=== PATIENT | female | born 1945 | race Caucasian/White ===

== ENCOUNTER 2020-03-10 13:01 | Inpatient (IN) ==
--- NOTE | 2020-03-10 13:12 | ERNOTE ---
Neuro HPI ER Record Presenting Symptoms: other - Decreased level of consciousness Time Seen by Provider: 03/10/20 13:11 Source: EMS notes reviewed, past records Exam Limitations: clinical condition Immunizations: IMMUNIZATION HX Immunizations Up to Date Yes History of Influenza Vaccine Yes Allergies/Adverse Reactions: Allergies Allergy/AdvReac Type Severity Reaction Status Date / Time latex Allergy Intermediate Other Verified 03/10/20 13:10 Home Medications: HOME MEDICATIONS Aspirin 325 mg PO DAILY 02/21/20 [Last Taken Unknown] Atorvastatin Calcium 10 mg PO HS 02/21/20 [Last Taken Unknown] Furosemide [Lasix] 40 mg PO DAILY 02/21/20 [Last Taken Unknown] Gabapentin 600 mg PO TID 02/21/20 [Last Taken Unknown] Amlodipine Besylate 10 mg PO DAILY 03/07/20 [Last Taken Unknown] Carvedilol [Coreg] 25 mg PO BID 03/07/20 [Last Taken Unknown] Clonidine HCl [Catapres] 0.2 mg PO Q8H 03/07/20 [Last Taken Unknown] Lisinopril [Zestril] 40 mg PO DAILY 03/07/20 [Last Taken Unknown] - History of Present Illness Narrative: Patient is a 74-year-old white female with past medical history significant for recent brain surgery with a recent intracranial bleed has been at the [facility] for skilled rehab and was found to have decreased level of c onsciousness earlier today, with difficulties arousing. Because of her recent surgical history she was sent to the ER for evaluation. Her states that she was recently seen in [facility] and released after 8 hours due to stability of CT findings, but his biggest concern was the fact that she had an elevated troponin I but no full cardiac work-up was done. She has not rivera d any outpatient cardiac work-up either. Her doctor is Dr. Lipscomb who practices in [facility]. Patient denies any chest pain or shortness of breath or unilateral weakness. She is able to state her name, though speech is slow and purposeful. Been no reported fevers or chills, cough, urinary frequency or dysuria, abdominal pain or diarrhea. Onset: better, >3 hours - Character of Deficits New weakness: Present: general (diffuse) Baseline Cognition: Present: alert, oriented x 4 Baseline Gait: Present: walks only w/ assistance Associated Symptoms: Reports: altered mental status, confused, decreased responsiveness, unresponsive. Denies: fever/chills, sweating, chest pain, neck/back pain, headache, fainting, seizure, disoriented, agitated, trouble concentrating, trouble thinking Prior Treament: Reports: recently seen, treated by physician, recently hospitalized Review of Systems - Review of Systems Constitutional: Present: fatigue, malaise. Absent: fever, chills, weakness EYE: Absent: blurred vision, double vision ENT: Absent: nose congestion, sore throat Respiratory: Absent: shortness of breath, cough Cardiology: Absent: chest pain, palpitations, syncope Gastrointestinal/Abdominal: Absent: nausea, vomiting, diarrhea, constipation, abdominal pain Genitourinary: Absent: frequency, dysuria Musculoskeletal: Absent: back pain, muscle pain, muscle stiffness Skin: Absent: rash, dryness Neurological: Absent: anxiety, depressed, emotional problems, headache, dizziness/light-headedness, numbness, tingling, tremors Endocrine: Absent: excessive sweating, flushing, intolerance to heat, intolerance to cold Hematologic/Lymphatic: Absent: easy bruising, easy bleeding Psych: Absent: anxiety, depressed Medical History (Last Reviewed 03/10/20 @ 23:24 by Zaira Garcia RN) Atrial fibrillation Diabetes GERD (gastroesophageal reflux disease) Hemorrhagic stroke Incontinence of urine Meningioma Stroke Surgical History: Surgical History (Last Reviewed 03/10/20 @ 23:24 by Zaira Garcia RN) History of craniotomy Hx of cholecystectomy Hx of hysterectomy Family History: Family History (Last Reviewed 03/10/20 @ 23:25 by Zaira Garcia RN) Mother Hypertension Social History: (Last Reviewed 03/11/20 @ 22:10 by Joe Ojeda MD) Social History: Marital status: lives independently: Yes lives independently comment: lives at home with her . household members: spouse caregiver/support person: Yes caregiver/support person comment: spouse parent marital status: Tobacco: Smoking Status: Former smoker Alcohol: alcohol intake: former Substance Use: substance use type: does not use Physical Exam - Physical Exam General Appearance: Present: wd/wn, alert, no apparent distress, other - Responses slow/delayed but appropriate. Patient can state her name Head Exam: Present: other - Patient has a right parietal surgical scalp wound that has no erythema or discharge. Eye Exam: Normal inspection: bilateral, PERRL: bilateral, Abnormal EOM: bilateral - Patient will not do left lateral gaze Ears, Nose, Throat: Present: normal except -, dry mucous membranes Neck: Present: normal inspection, nontender, supple Respiratory: Present: no respiratory distress, normal breath sounds, no accessory muscle use, chest nontender, lungs clear Cardiovascular/Chest: Present: regular rate, rhythm, no murmur, normal peripheral pulses Gastrointestinal/Abdominal: Present: normal bowel sounds, nontender, nondistended, soft, no organomegaly Extremity Exam: Present: normal inspection, non-tender, normal range of motion, no edema Neurological Exam: Present: alert, normal mood/affect, no motor/sensory deficits - Patient does have slight decreased honey producer strength on the right versus the left. honey producer strength is 4 on the left and 4- on right. Skin Exam: Present: normal color, warm/dry [place] Coma Scale - Assess Eye Opening: Spontaneous Motor: Obeys Commands Verbal: Oriented - Total Coma Scale Total: 15 Progress - Results and Orders Patient's Lab Results:: I have reviewed the patient's lab results. Results and Orders: Laboratory Tests 03/10/20 13:10 WBC 14.5 H RBC 4.63 Hgb 13.3 Hct 40.1 MCV 86.6 MCH 28.7 MCHC 33.2 RDW 13.1 Plt Count 228 MPV 9.9 Immature Gran % (Auto) 0.60 H Immature Gran # (Auto) 0.08 H Neutrophils % 86.0 H Lymphocytes % 7.8 L Monocytes % 4.7 Eosinophils % 0.6 Basophils % 0.3 Nucleated RBC % 0.0 Neutrophils # 12.5 H Lymphocytes # 1.14 L Monocytes # 0.7 Eosinophils # 0.1 Absolute Basophils 0.1 Laboratory Tests 03/10/20 13:10 Sodium 139 Plasma Sodium 139 Potassium 2.9 L Chloride 98 Carbon Dioxide 29.4 Anion Gap 14.5 H BUN 23 Creatinine 1.40 D Est GFR (Non-Af Amer) 39 L D BUN/Creatinine Ratio 16.4 Random Glucose 128 H Calcium 9.5 Calcium Adj for Albumin 9.5 Total Bilirubin 1.3 H AST 21 ALT 27 Alkaline Phosphatase 95 Troponin I 0.182 H* C-Reactive Prot, Quant 0.8 Total Protein 7.1 Albumin 3.6 Laboratory Tests 03/10/20 14:05 Urine Color Yellow Urine Appearance Clear Urine pH 6.0 Ur Specific [place] 1.015 Urine Protein Negative Urine Glucose (UA) Negative Urine Ketones Negative Urine Blood Negative Urine Nitrate Negative Urine Bilirubin Negative Urine Urobilinogen Normal Ur Leukocyte Esterase Negative Urine RBC None seen Urine WBC Trace H Ur Epithelial Cells None seen Urine Bacteria 1+ H Urine Culture Comments No culture indicated Laboratory Tests 03/10/20 16:05 Troponin I 0.171 H* - Vital Signs Patient's Vital Signs:: I have reviewed the patient's vital signs. Vital Signs: Vital Signs 03/10/20 13:08 Temperature 36.9 C Pulse Rate 62 Respiratory Rate 18 Blood Pressure 106/61 O2 Sat by Pulse Oximetry 95 - Progress/Reassessment Chief Complaint: Altered Mental Status Progress:: Improved - Transfer of Care Expected Disposition: Admit Additional Notes: Patient discussed with Dr. Lemus. She is agreeable for admission. Explained her that that she did have an elevated troponin I and was hypokalemic with just 20meq PO KCL given so far. Dr. Lemus asked for start of KCL rider 10meq in ER prior to transfer to the floor and she will take things from there. Plan - Plan Plan: Given patient's decreased level of consciousness will check cardiac enzymes, EKG, labs and also repeat head CT for concern for possible rebleed. Labs for the most part been normal though she does have a slight elevation of her white count to 14,000 and it was 11,000 a few days ago. She is afebrile. Her troponin came back 0.182. Because of her recent surgeries and intracranial bleed she is not a candidate for heparin drip or TPA. Her blood pressures are currently 120/73. I discussed with her what we found so far and the limitations from a treatment standpoint. He is okay with repeating a troponin in 3 hours after the initial one was done. Her did state that yesterday her blood pressures went into the 180's/110's and patient was given medications with then dropped her systolic blood pressures into the 60s. Her states he would prefer if she does need to be transferred from a cardiology standpoint that she would not go to [facility] but would be evaluated possibly at [facility]. Departure Clinical Impression: Elevated troponin I level, Hypokalemia Altered mental status Qualifiers: Altered mental status type: somnolence Qualified Code(s): R40.0 - Somnolence - Departure Disposition: Still a patient Condition: Stable
[2020-03-10 13:27] LABS: Hematocrit 40.1 % (37.0-47.0); Hemoglobin 13.3 gm/dL (12.5-16.0); Mean Cell Volume 86.6 fl (78-100); Mean Corpuscular Hemoglobin 28.7 pg (27-31); Mean Corpuscular Hgb Conc 33.2 g/dl (32-36); Mean Platelet Volume 9.9 fl (8-12.5); Neutrophil # 12.5 K/mm3 (1.3-6.0); Platelet Count 228 K/mm3 (150-450); Red Blood Count 4.63 M/mm3 (4.2-5.4); Red Cell Distribution Width 13.1 % (11.5-14.0); White Blood Count 14.5 K/mm3 (4.0-10.5)
[2020-03-10 13:52] LABS: Albumin * 3.6 gm/dl (3.4-5.0); Anion Gap 14.5 mmol/L (6.8-13.8); BUN/Creatinine Ratio 16.4 (9.0-21.6); Bilirubin, Total 1.3 mg/dL (0.0-1.1); CRP 0.8 mg/dL (0.0-0.9); Ca. Corrected For Albumin 9.5 mg/dL (8.4-10.2); Calcium * 9.5 mg/dL (7.9-10.9); Carbon Dioxide 29.4 mmol/L (24-32.6); Potassium 2.9 mmol/L (3.4-4.6); Total Protein 7.1 gm/dL (6.2-8.2)
[2020-03-10 13:58] LABS: Troponin I 0.182 ng/mL (0.00-0.10)
[2020-03-10 14:15] LABS: Urine Bilirubin Negative (NEGATIVE); Urine Blood Negative /ul (NEGATIVE); Urine Ketone Negative (NEGATIVE); Urine Nitrite Negative (NEGATIVE); Urine Protein Negative (NEGATIVE); Urine Specific Gravity 1.015 SP.GR. (1.005-1.010); Urine Urobilinogen Normal (NORMAL)
[2020-03-10 14:41] LABS: Urine Appearance Clear (CLEAR); Urine Bacteria 1+; Urine Color Yellow; Urine RBC None Seen /hpf (0-5); Urine WBC TRACE /hpf (0-5)
[2020-03-10] MEDS ORDERED: POTASSIUM CHLORIDE 20 MEQ TABLET.SA PO ONE (16:51)
[2020-03-10] MEDS ORDERED: POTASSIUM CHLORIDE IN WATER 100 ML IV ONE ×2 (18:15→19:55)
[2020-03-10] MEDS ORDERED: ACETAMINOPHEN 500 MG TABLET PO PRN (19:59)
--- NOTE | 2020-03-10 20:36 | HP ---
Chief Complaint - Chief Complaint Date of Service: 03/10/20 Time of Service: 20:18 Chief Complaint: I have been confused since this morning History of Present Illness: 74-year-old female with past medical history of type II diabetes, hypertension, obesity, hemorrhagic CVA, meningioma, GERD was brought to the ER by EMS from the [facility] for evaluation of altered mental status. Patient recently suffered a hemorrhagic CVA and was treated by a neurovascular surgeon at the [facility] and was discharged to the [facility], several days after that she had to be brought back to the [facility] due to recurrence of altered mental status. The patient was evaluated at the [facility] and it was determined that her condition was unchanged so no changes were made to her treatment. However this morning the patient was observed to be more hypoactive and had an altered mental status compared to yesterday. She appeared confused and minimally responsive. Once in the ER her mentation fluctuated with periods of confusion about where she was or details of current events. Currently the patient is resting comfortably, she is responsive to questioning and is following command. Although she appears mildly somnolent she is oriented in person and time but was confused about where she lives, whether or not this is the patient's baseline is difficult to determine at this time because she is unaccompanied. Head CT scan done in the ER this afternoon actually showed a decrease in her brain bleed and improvement compared to the previous head CT. Neurologically the patient displays left-sided weakness in her upper extremities and sensation is intact. She was found to have elevated troponin than the ER however this is not new for the patient because there is a previous troponin that was even higher several days ago. She denies any chest pain or shortness of breath or any other cardiac symptoms. Medical History (Last Reviewed 03/10/20 @ 13:10 by Mahsa Huitron RN) Atrial fibrillation Diabetes GERD (gastroesophageal reflux disease) Hemorrhagic stroke Incontinence of urine Meningioma Stroke Surgical History: Surgical History (Last Reviewed 03/10/20 @ 13:10 by Mahsa Huitron RN) History of craniotomy Hx of cholecystectomy Hx of hysterectomy Family History: Family History (Last Reviewed 03/10/20 @ 13:10 by Mahsa Huitron RN) Mother Hypertension Social History: (Last Reviewed 03/10/20 @ 13:10 by Mahsa Huitron RN) Social History: Marital status: lives independently: Yes lives independently comment: lives at home with her . household members: spouse caregiver/support person: Yes caregiver/support person comment: spouse parent marital status: Tobacco: Smoking Status: Former smoker Alcohol: alcohol intake: former Substance Use: substance use type: does not use Peds Patient Hx - Developmental: No Pertinent Hx Peds Patient Hx - Medical: No Pertinent Hx Peds Patient Hx - Cardiac/Respiratory: No Pertinent Hx Peds Patient Hx - Surgical: No Surgical History Patient History - Cancer: No Hx of Cancer Review Of Systems (GEN) - Review of Systems Generalized/Overall Review: Present: Weakness EENTM: Present: No Symptoms Reported Respiratory: Present: No Symptoms Reported Cardiac: Present: No Symptoms Reported Abdominal: Present: No Symptoms Reported Genitourinary: Present: No Symptoms Reported Musculoskeletal: Present: No Symptoms Reported Neurological: Present: Pre-existing Deficit, Other - Altered mental status, confusion Skin: Present: No Symptoms Reported Endocrine: Present: No Symptoms Reported Immunizations: IMMUNIZATION HX Immunizations Up to Date Yes History of Influenza Vaccine Yes Allergies/Adverse Reactions: Allergies Allergy/AdvReac Type Severity Reaction Status Date / Time latex Allergy Intermediate Other Verified 03/10/20 13:10 Home Medications: HOME MEDICATIONS Aspirin 325 mg PO DAILY 02/21/20 [Last Taken Unknown] Atorvastatin Calcium 10 mg PO HS 02/21/20 [Last Taken Unknown] Furosemide [Lasix] 40 mg PO DAILY 02/21/20 [Last Taken Unknown] Gabapentin 600 mg PO TID 02/21/20 [Last Taken Unknown] Amlodipine Besylate 10 mg PO DAILY 03/07/20 [Last Taken Unknown] Carvedilol [Coreg] 25 mg PO BID 03/07/20 [Last Taken Unknown] Clonidine HCl [Catapres] 0.2 mg PO Q8H 03/07/20 [Last Taken Unknown] Lisinopril [Zestril] 40 mg PO DAILY 03/07/20 [Last Taken Unknown] Exam - Exam Vital Signs: Vital Signs - Last Taken Temp 36.2 C 03/10/20 15:27 Pulse 75 03/10/20 20:14 Resp 14 03/10/20 20:14 BP 148/84 03/10/20 20:14 Pulse Ox 96 03/10/20 20:14 Comprehensive Narrative: 03/10/20 20:35 Patient has a fresh surgical wound with ghassan in place in the right frontal region of her skull, there are no signs of bleeding or infection. Constitutional: Present: Alert, Cooperative, Well developed, No distress, Somnolent, Elderly, Morbidly obese ENT Exam: Present: normal ENT inspection, hearing grossly normal, pharynx normal, TMs normal Eye Exam: bilateral eye: normal inspection, PERRL, EOMI Neck: Present: non-tender, full range of motion, supple, normal inspection, trachea midline Back Exam: Present: normal inspection, no CVA tenderness, no vertebral tenderness Breasts: Present: Exam deferred Respiratory: Present: chest non-tender, lungs clear, normal breath sounds, no respiratory distress, no accessory muscle use Cardiovascular/Chest: Present: normal peripheral pulses, no chest tenderness, no edema, no gallop, no murmur, no rub, irregularly irregular Peripheral Pulses: dorsalis-pedis (R): 2+, dorsalis-pedis (L): 2+ Abdomen: Present: Normal bowel sounds, soft, nontender, nondistended, no rebound tenderness, no hepatospenomegaly, no masses, obese /Rectal: Present: Exam deferred Extremity: Present: normal range of motion, non-tender, normal inspection, no pedal edema, no calf tenderness, normal capillary refill, pelvis stable Skin Exam: Present: normal color, warm/dry, no cyanosis Lymphatic: Present: no adenopathy Neurologic: Present: alert, abnormal barge engineer II-XII, motor weakness - Decreased strength in left upper extremity, depressed affect Appearance: Present: appropriate appearance, appropriate insight, neat, impaired recent memory, impaired remote memory Eye contact: Present: cooperative, good eye contact, normal speech Thoughts: Present: normal thought pattern Diagnostic Studies: Abnormal Lab Results 03/10/20 03/10/20 03/10/20 Range/Units 13:10 13:10 14:05 WBC 14.5 H (4.0-10.5) K/mm3 Immature Gran % (Auto) 0.60 H (0.001-0.429) % Immature Gran # (Auto) 0.08 H (0.000-0.0310) K/mm3 Neutrophils % 86.0 H (42-75.0) % Lymphocytes % 7.8 L (20-51) % Neutrophils # 12.5 H (1.3-6.0) K/mm3 Lymphocytes # 1.14 L (1.5-3.5) k/mm3 Potassium 2.9 L (3.4-4.6) mmol/L Anion Gap 14.5 H (6.8-13.8) mmol/L Est GFR (Non-Af Amer) 39 L D (60-130) mL/min Random Glucose 128 H (70-110) mg/dL Total Bilirubin 1.3 H (0.0-1.1) mg/dL Troponin I 0.182 H* (0.00-0.10) ng/mL Urine WBC Trace H (0-5) /hpf Urine Bacteria 1+ H (NONE) 03/10/20 Range/Units 16:05 WBC (4.0-10.5) K/mm3 Immature Gran % (Auto) (0.001-0.429) % Immature Gran # (Auto) (0.000-0.0310) K/mm3 Neutrophils % (42-75.0) % Lymphocytes % (20-51) % Neutrophils # (1.3-6.0) K/mm3 Lymphocytes # (1.5-3.5) k/mm3 Potassium (3.4-4.6) mmol/L Anion Gap (6.8-13.8) mmol/L Est GFR (Non-Af Amer) (60-130) mL/min Random Glucose (70-110) mg/dL Total Bilirubin (0.0-1.1) mg/dL Troponin I 0.171 H* (0.00-0.10) ng/mL Urine WBC (0-5) /hpf Urine Bacteria (NONE) Laboratory Results WBC 14.5 K/mm3 (4.0-10.5) H 03/10/20 13:10 RBC 4.63 M/mm3 (4.2-5.4) 03/10/20 13:10 Hgb 13.3 gm/dL (12.5-16.0) 03/10/20 13:10 Hct 40.1 % (37.0-47.0) 03/10/20 13:10 MCV 86.6 fl (78-100) 03/10/20 13:10 MCH 28.7 pg (27-31) 03/10/20 13:10 MCHC 33.2 g/dl (32-36) 03/10/20 13:10 RDW 13.1 % (11.5-14.0) 03/10/20 13:10 Plt Count 228 K/mm3 (150-450) 03/10/20 13:10 MPV 9.9 fl (8-12.5) 03/10/20 13:10 Immature Gran % (Auto) 0.60 % (0.001-0.429) H 03/10/20 13:10 Immature Gran # (Auto) 0.08 K/mm3 (0.000-0.0310) H 03/10/20 13:10 Neutrophils % 86.0 % (42-75.0) H 03/10/20 13:10 Lymphocytes % 7.8 % (20-51) L 03/10/20 13:10 Monocytes % 4.7 % (0.0-9) 03/10/20 13:10 Eosinophils % 0.6 % (0.0-3.0) 03/10/20 13:10 Basophils % 0.3 % (0.0-1.0) 03/10/20 13:10 Nucleated RBC % 0.0 k/mm3 (0-1) 03/10/20 13:10 Neutrophils # 12.5 K/mm3 (1.3-6.0) H 03/10/20 13:10 Lymphocytes # 1.14 k/mm3 (1.5-3.5) L 03/10/20 13:10 Monocytes # 0.7 k/mm3 (0.0-1.0) 03/10/20 13:10 Eosinophils # 0.1 k/mm3 (0.0-0.7) 03/10/20 13:10 Absolute Basophils 0.1 k/mm3 (0.0-0.1) 03/10/20 13:10 Sodium 139 mmol/L (132-142) 03/10/20 13:10 Plasma Sodium 139 mmol/L (130-142) 03/10/20 13:10 Potassium 2.9 mmol/L (3.4-4.6) L 03/10/20 13:10 Chloride 98 mmol/L (97-106) 03/10/20 13:10 Carbon Dioxide 29.4 mmol/L (24-32.6) 03/10/20 13:10 Anion Gap 14.5 mmol/L (6.8-13.8) H 03/10/20 13:10 BUN 23 mg/dL (3-23) 03/10/20 13:10 Creatinine 1.40 mg/dL (0.4-1.4) D 03/10/20 13:10 Est GFR (Non-Af Amer) 39 mL/min (60-130) L D 03/10/20 13:10 BUN/Creatinine Ratio 16.4 (9.0-21.6) 03/10/20 13:10 Random Glucose 128 mg/dL (70-110) H 03/10/20 13:10 Calcium 9.5 mg/dL (7.9-10.9) 03/10/20 13:10 Calcium Adj for Albumin 9.5 mg/dL (8.4-10.2) 03/10/20 13:10 Total Bilirubin 1.3 mg/dL (0.0-1.1) H 03/10/20 13:10 AST 21 U/L (0-48) 03/10/20 13:10 ALT 27 U/L (19-67) 03/10/20 13:10 Alkaline Phosphatase 95 U/L (50-170) 03/10/20 13:10 Troponin I 0.171 ng/mL (0.00-0.10) H* 03/10/20 16:05 C-Reactive Prot, Quant 0.8 mg/dL (0.0-0.9) 03/10/20 13:10 Total Protein 7.1 gm/dL (6.2-8.2) 03/10/20 13:10 Albumin 3.6 gm/dl (3.4-5.0) 03/10/20 13:10 Urine Color Yellow 03/10/20 14:05 Urine Appearance Clear (CLEAR) 03/10/20 14:05 Urine pH 6.0 pH (5.0-7.0) 03/10/20 14:05 Ur Specific [place] 1.015 SP.GR. (1.005-1.010) 03/10/20 14:05 Urine Protein Negative mg/dL (NEGATIVE) 03/10/20 14:05 Urine Glucose (UA) Negative mg/dL (NEGATIVE) 03/10/20 14:05 Urine Ketones Negative mg/dL (NEGATIVE) 03/10/20 14:05 Urine Blood Negative /ul (NEGATIVE) 03/10/20 14:05 Urine Nitrate Negative (NEGATIVE) 03/10/20 14:05 Urine Bilirubin Negative mg/dl (NEGATIVE) 03/10/20 14:05 Urine Urobilinogen Normal EU/dl (NORMAL) 03/10/20 14:05 Ur Leukocyte Esterase Negative /ul (NEGATIVE) 03/10/20 14:05 Urine RBC None seen /hpf (0-5) 03/10/20 14:05 Urine WBC Trace /hpf (0-5) H 03/10/20 14:05 Ur Epithelial Cells None seen /hpf (0-5) 03/10/20 14:05 Urine Bacteria 1+ (NONE) H 03/10/20 14:05 Urine Culture Comments No culture indicated 03/10/20 14:05 SARS-CoV-2 (PCR) Not detected (ND) 03/10/20 18:27 Assessment/Plan - Narrative Narrative: Patient was evaluated medical chart was reviewed and decision to admit to [facility] unit for treatment of altered mental status was made. The patient was found to have elevated troponin which is not new, there was a previous troponin recorded from her last visit to the ER which was higher than today's levels. EKG was negative for any ST elevations and was only significant for the patient's usual atrial fibrillation. She denies any chest pain or any shortness of breath and maintained stable vitals. The patient was found to have severe hypokalemia so we are replacing her potassium. Follow-up labs have been ordered for tomorrow morning. In the meantime we will keep the patient on telemetry and continue to monitor her closely. At the moment she is fully awake and re sponsive to verbal questioning and is following command. However there is still somnolence and mild confusion about where she lives he cannot be determined at the moment if the patient is at her baseline. We will reevaluate her tomorrow morning. - Assessment/Plan (1) Intraventricular hemorrhage, nontraumatic Problem: Acute (2) Troponin level elevated Problem: Acute (3) Atrial fibrillation Problem: Acute (4) Intraventricular hemorrhage Problem: Acute (5) Altered mental status Problem: Acute Qualifiers: Altered mental status type: somnolence Qualified Code(s): R40.0 - Somnolence (6) Hypokalemia Problem: Acute (7) Diabetes 1.5, managed as type 2 Problem: Chronic (8) Recent cerebral hemorrhage Problem: Acute
[2020-03-10] MEDS: INSULIN REGULAR, HUMAN 100 UNITS/ML VIAL SC SCH (22:18)
[2020-03-10] MEDS: CARVEDILOL 25 MG TABLET PO SCH (22:55)
[2020-03-10] MEDS: ROSUVASTATIN CALCIUM 10 MG TABLET PO SCH (22:55)
[2020-03-11] MEDS: INSULIN REGULAR, HUMAN 100 UNITS/ML VIAL SC SCH ×4 (06:39→20:49)
[2020-03-11 07:02] LABS: Hematocrit 38.2 % (37.0-47.0); Hemoglobin 12.9 gm/dL (12.5-16.0); Mean Cell Volume 86.4 fl (78-100); Mean Corpuscular Hemoglobin 29.2 pg (27-31); Mean Corpuscular Hgb Conc 33.8 g/dl (32-36); Mean Platelet Volume 10.2 fl (8-12.5); Neutrophil # 7.7 K/mm3 (1.3-6.0); Neutrophil % 74.9 % (42-75.0); Platelet Count 215 K/mm3 (150-450); Red Blood Count 4.42 M/mm3 (4.2-5.4); White Blood Count 10.3 K/mm3 (4.0-10.5)
[2020-03-11 07:05] LABS: Albumin * 3.4 gm/dl (3.4-5.0); Anion Gap 10.6 mmol/L (6.8-13.8); BUN/Creatinine Ratio 21.6 (9.0-21.6); Bilirubin, Total 1.1 mg/dL (0.0-1.1); Calcium * 9.8 mg/dL (7.9-10.9); Carbon Dioxide 32.3 mmol/L (24-32.6); Potassium 2.9 mmol/L (3.4-4.6); Total Protein 6.7 gm/dL (6.2-8.2)
[2020-03-11] MEDS: CARVEDILOL 25 MG TABLET PO SCH ×2 (09:00→20:44)
[2020-03-11] MEDS: GABAPENTIN 600 MG TABLET PO SCH ×3 (09:01→17:31)
[2020-03-11] MEDS: amLODIPine BESYLATE 10 MG TABLET PO SCH (09:02)
[2020-03-11] MEDS: LISINOPRIL 40 MG TABLET PO SCH (09:02)
[2020-03-11] MEDS ORDERED: POTASSIUM CHLORIDE 20 MEQ TABLET.SA PO ONE ×2 (09:30→16:04)
--- NOTE | 2020-03-11 09:44 | PN ---
Subjective - Date and Time Seen Date: 03/11/20 Time: 09:33 Subjective Narrative: I will have a headache Objective Objective Narrative: 74-year-old female admitted for altered mental status and acute neurologic deficit was evaluated at bedside was found to be afebrile and in no acute distress. Patient appears more alert and more awake this morning, she responds correctly to questioning and follows command without any issues. 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 Her speech is intact and not slurred however the patient does appear hypoactive. Her only complaint this morning is a slight headache on the right frontal region which is a surgical site where they drained her brain bleed. We will administer pain medications for this. Patient had an uneventful night, and said she was able to sleep. She ate her breakfast without any issues this morning and denies any nausea. Labs this morning demonstrate no improvement of her hypokalemia despite multiple K riders and p.o. potassium supplements, will administer additional dose of potassium and repeat BMP this afternoon. - Review of Systems Generalized/Overall Review: Reports: No Symptoms Reported EENTM: Reports: No Symptoms Reported Respiratory: Reports: No Symptoms Reported Cardiac: Reports: No Symptoms Reported Abdominal: Reports: No Symptoms Reported Genitourinary Symptoms: Reports: No Symptoms Reported Musculoskeletal Complaints: Reports: No Symptoms Reported Neurological: Reports: Headache, Pre-existing Deficit Skin: Reports: No Symptoms Reported Endocrine: Reports: No Symptoms Reported - Vitals Vitals: Last Vital Signs Temp 36.1 C 03/11/20 06:42 Pulse 70 03/11/20 09:02 Resp 18 03/11/20 06:42 BP 178/90 H 03/11/20 09:02 Pulse Ox 97 03/11/20 06:42 - Abnormal Lab Findings Abnormal Lab Findings: Abnormal Lab Results 03/10/20 03/10/20 03/10/20 Range/Units 13:10 13:10 14:05 WBC 14.5 H (4.0-10.5) K/mm3 Immature Gran % (Auto) 0.60 H (0.001-0.429) % Immature Gran # (Auto) 0.08 H (0.000-0.0310) K/mm3 Neutrophils % 86.0 H (42-75.0) % Lymphocytes % 7.8 L (20-51) % Neutrophils # 12.5 H (1.3-6.0) K/mm3 Lymphocytes # 1.14 L (1.5-3.5) k/mm3 Potassium 2.9 L (3.4-4.6) mmol/L Anion Gap 14.5 H (6.8-13.8) mmol/L BUN (3-23) mg/dL Est GFR (Non-Af Amer) 39 L D (60-130) mL/min Random Glucose 128 H (70-110) mg/dL Total Bilirubin 1.3 H (0.0-1.1) mg/dL Troponin I 0.182 H* (0.00-0.10) ng/mL Urine WBC Trace H (0-5) /hpf Urine Bacteria 1+ H (NONE) 03/10/20 03/11/20 03/11/20 Range/Units 16:05 06:41 06:41 WBC (4.0-10.5) K/mm3 Immature Gran % (Auto) (0.001-0.429) % Immature Gran # (Auto) 0.04 H (0.000-0.0310) K/mm3 Neutrophils % (42-75.0) % Lymphocytes % 15.8 L (20-51) % Neutrophils # 7.7 H (1.3-6.0) K/mm3 Lymphocytes # (1.5-3.5) k/mm3 Potassium 2.9 L (3.4-4.6) mmol/L Anion Gap (6.8-13.8) mmol/L BUN 25 H (3-23) mg/dL Est GFR (Non-Af Amer) 48 L D (60-130) mL/min Random Glucose (70-110) mg/dL Total Bilirubin (0.0-1.1) mg/dL Troponin I 0.171 H* (0.00-0.10) ng/mL Urine WBC (0-5) /hpf Urine Bacteria (NONE) - Exam Constitutional: Present: Alert, Oriented x3, Cooperative, Well developed, Well nourished, No distress, Elderly, Morbidly obese ENT Exam: Present: normal ENT inspection, hearing grossly normal, pharynx normal, TMs normal Neck: Present: non-tender, full range of motion, supple, normal inspection, trachea midline Breasts: Present: Exam deferred, Nontender Respiratory: Present: chest non-tender, lungs clear, normal breath sounds, no respiratory distress, no accessory muscle use Cardiovascular/Chest: Present: normal peripheral pulses, regular rate, rhythm, no chest tenderness, no edema, no gallop, no JVD, no murmur, no rub Abdomen: Present: Normal bowel sounds, soft, nontender, nondistended, no rebound tenderness, no hepatospenomegaly, no masses, obese /Rectal: Present: Exam deferred Extremity: Present: normal range of motion, non-tender, normal inspection, no pedal edema, no calf tenderness, normal capillary refill, pelvis stable Skin Exam: Present: normal color, warm/dry, no cyanosis Lymphatic: Present: no adenopathy Neurologic: Present: alert, motor weakness - Left-sided weakness in upper extremity, depressed affect Appearance: Present: appropriate appearance, appropriate insight, neat Eye contact: Present: cooperative, good eye contact, normal speech Thoughts: Present: normal thought pattern, no apparent hallucination Assessment/Plan Plan Narrative: Patient appears to be recuperating from her altered mental status from yesterday. After evaluating her past visits it is apparent that her current symptoms might be due to the "waxing and waning" of her mentation related to her recent hemorrhagic CVA and subsequent neurosurgery. This is to be expected after such events, it appears that staff over at the care center are in need of some education on the aftereffects of a hemorrhagic CVA and brain surgery. I will provide some information on the patient's discharge summary. - Problems/Diagnosis (1) Intraventricular hemorrhage, nontraumatic Problem: Acute (2) Troponin level elevated Problem: Acute (3) Atrial fibrillation Problem: Acute (4) Intraventricular hemorrhage Problem: Acute (5) Altered mental status Problem: Acute Qualifiers: Altered mental status type: somnolence Qualified Code(s): R40.0 - Somnolence (6) Hypokalemia Problem: Acute (7) Diabetes 1.5, managed as type 2 Problem: Chronic (8) Recent cerebral hemorrhage Problem: Acute
[2020-03-11] MEDS: FUROSEMIDE 40 MG TABLET PO SCH (10:04)
[2020-03-11] MEDS: ACETAMINOPHEN 325 MG TABLET PO PRN (10:05)
--- NOTE | 2020-03-11 15:20 | DS ---
(1) Intraventricular hemorrhage, nontraumatic Problem: Acute (2) Troponin level elevated Problem: Acute (3) Atrial fibrillation Problem: Acute (4) Intraventricular hemorrhage Problem: Acute (5) Altered mental status Problem: Acute Qualifiers: Altered mental status type: somnolence Qualified Code(s): R40.0 - Somnolence (6) Hypokalemia Problem: Acute (7) Diabetes 1.5, managed as type 2 Problem: Chronic (8) Recent cerebral hemorrhage Problem: Acute (9) HTN (hypertension) Problem: Acute Date of Discharge:: 03/11/20 Hospital Course: Patient continues to show clinical improvement, she is fully awake and alert. Besides some mild confusion about where she resides she is oriented as to person and time. She reports occasional headaches which improves with acetaminophen. The neurosurgeon on her case at the [facility] was consulted and he reports after evaluating the details of this hospitalization and the imaging conducted in the ER yesterday, her brain bleed appears minimally changed and there is slight resolution. He did not recommend any new changes to her treatment and says that she has a follow-up appointment for reevaluation in several weeks. He also explained that waxing and waning of mental status and occasional delirium is common after intraventricular hemorrhages and after a ventriculostomy. Therefore decision to discharge patient back to [facility] where she will undergo rehab with PT OT and speech therapy was made. Will resume all of her routine medications so that they can be administered as they were previously. Patient is to follow-up with her primary care doctor in 1 week. Procedures Performed: none Results and Findings: Pending Mircobiology Results 03/10/20 13:57 Blood Blood Culture - Preliminary NO GROWTH 24 HOURS 03/10/20 13:10 Blood Blood Culture - Preliminary NO GROWTH 24 HOURS Lab Pending Results 03/10/20 13:10: WBC 14.5 H, RBC 4.63, Hgb 13.3, Hct 40.1, MCV 86.6, MCH 28.7, MCHC 33.2, RDW 13.1, Plt Count 228, MPV 9.9, Immature Gran % (Auto) 0.60 H, Immature Gran # (Auto) 0.08 H, Neutrophils % 86.0 H, Lymphocytes % 7.8 L, Monocytes % 4.7, Eosinophils % 0.6, Basophils % 0.3, Nucleated RBC % 0.0, Neutrophils # 12.5 H, Lymphocytes # 1.14 L, Monocytes # 0.7, Eosinophils # 0.1, Absolute Basophils 0.1 03/10/20 13:10: Sodium 139, Plasma Sodium 139, Potassium 2.9 L, Chloride 98, Carbon Dioxide 29.4, Anion Gap 14.5 H, BUN 23, Creatinine 1.40 D, Est GFR (Non- Af Amer) 39 L D, BUN/Creatinine Ratio 16.4, Random Glucose 128 H, Calcium 9.5, Calcium Adj for Albumin 9.5, Total Bilirubin 1.3 H, AST 21, ALT 27, Alkaline Phosphatase 95, Troponin I 0.182 H*, C-Reactive Prot, Quant 0.8, Total Protein 7.1, Albumin 3.6 03/10/20 14:05: Urine Color Yellow, Urine Appearance Clear, Urine pH 6.0, Ur Specific Mico 1.015, Urine Protein Negative, Urine Glucose (UA) Negative, Urine Ketones Negative, Urine Blood Negative, Urine Nitrate Negative, Urine Bilirubin Negative, Urine Urobilinogen Normal, Ur Leukocyte Esterase Negative, Urine RBC None seen, Urine WBC Trace H, Ur Epithelial Cells None seen, Urine Bacteria 1+ H, Urine Culture Comments No culture indicated 03/10/20 16:05: Troponin I 0.171 H* 03/10/20 18:27: SARS-CoV-2 (PCR) Not detected 03/11/20 06:41: WBC 10.3 D, RBC 4.42, Hgb 12.9, Hct 38.2, MCV 86.4, MCH 29.2, MCHC 33.8, RDW 13.0, Plt Count 215, MPV 10.2, Immature Gran % (Auto) 0.40, Immature Gran # (Auto) 0.04 H, Neutrophils % 74.9, Lymphocytes % 15.8 L, Monocytes % 7.5, Eosinophils % 0.9, Basophils % 0.5, Nucleated RBC % 0.0, Neutrophils # 7.7 H, Lymphocytes # 1.62, Monocytes # 0.8, Eosinophils # 0.1, Absolute Basophils 0.1 03/11/20 06:41: Sodium 141, Plasma Sodium 141, Potassium 2.9 L, Chloride 101, Carbon Dioxide 32.3, Anion Gap 10.6, BUN 25 H, Creatinine 1.16, Est GFR (Non-Af Amer) 48 L D, BUN/Creatinine Ratio 21.6, Random Glucose 107, Calcium 9.8, Calcium Adj for Albumin 10.0, Total Bilirubin 1.1, AST 19, ALT 23, Alkaline Phosphatase 92, Total Protein 6.7, Albumin 3.4 Discharge Location: [facility] Disposition: SNF Condition: Stable Face to Face Encounter completed per [facility] Guidelines: No Level of Care: SNF Discharge Activity: Activity as tolerated, No Lifting Discharge Diet: [facility] soft [facility] Therapy: Physical Therapy, Occupation Therapy, Speech Therapy Additional Patient Instructions (free text): Return to [facility] resume previous orders. Complete Home Medications List: Complete Home Medication List: Aspirin 325 mg PO DAILY 02/21/20 Atorvastatin Calcium 10 mg PO HS 02/21/20 Furosemide [Lasix] 40 mg PO DAILY 02/21/20 Gabapentin 600 mg PO TID 02/21/20 Amlodipine Besylate 10 mg PO DAILY 03/07/20 Carvedilol [Coreg] 25 mg PO BID 03/07/20 Clonidine HCl [Catapres] 0.2 mg PO Q8H 03/07/20 Lisinopril [Zestril] 40 mg PO DAILY 03/07/20 Forms: Patient Portal Registration
[2020-03-11 15:53] LABS: Anion Gap 12.8 mmol/L (6.8-13.8); BUN/Creatinine Ratio 20.9 (9.0-21.6); Calcium * 9.9 mg/dL (7.9-10.9); Carbon Dioxide 29.5 mmol/L (24-32.6); Estimated Creat Clear 44.8; Potassium 3.3 mmol/L (3.4-4.6)
[2020-03-11] MEDS: ROSUVASTATIN CALCIUM 10 MG TABLET PO SCH (20:44)
[2020-03-12] MEDS: INSULIN REGULAR, HUMAN 100 UNITS/ML VIAL SC SCH ×4 (07:30→21:00)
[2020-03-12] MEDS: ACETAMINOPHEN 325 MG TABLET PO PRN (07:31)
[2020-03-12 08:14] LABS: Albumin * 3.5 gm/dl (3.4-5.0); Anion Gap 8.6 mmol/L (6.8-13.8); BUN/Creatinine Ratio 17.5 (9.0-21.6); Bilirubin, Total 1.4 mg/dL (0.0-1.1); Ca. Corrected For Albumin 9.9 mg/dL (8.4-10.2); Calcium * 9.8 mg/dL (7.9-10.9); Carbon Dioxide 32.4 mmol/L (24-32.6); Total Protein 6.9 gm/dL (6.2-8.2)
[2020-03-12] MEDS ORDERED: POTASSIUM CHLORIDE 20 MEQ TABLET.SA PO ONE (08:23)
[2020-03-12] MEDS: GABAPENTIN 600 MG TABLET PO SCH ×3 (08:53→16:49)
[2020-03-12] MEDS: MUPIROCIN 22 APPL TUBE TP SCH ×2 (08:53→20:59)
[2020-03-12] MEDS: amLODIPine BESYLATE 10 MG TABLET PO SCH (08:53)
[2020-03-12] MEDS: NYSTATIN 15 APPL TUBE TP SCH ×2 (08:54→21:01)
[2020-03-12] MEDS: CARVEDILOL 25 MG TABLET PO SCH ×2 (08:54→21:00)
[2020-03-12] MEDS: FUROSEMIDE 40 MG TABLET PO SCH (08:54)
[2020-03-12] MEDS: LISINOPRIL 40 MG TABLET PO SCH (08:54)
--- NOTE | 2020-03-12 08:57 | PN ---
Subjective - Date and Time Seen Date: 03/12/20 Time: 08:46 Subjective Narrative: I still have a headache but I feel better. Objective Objective Narrative: 74-year-old female admitted for altered mental status and acute neurologic deficit was evaluated at bedside was found to be afebrile and in no acute distress. Patient continues to show clinical improvement compared to when she arrived she is oriented x3 but is still hypoactive. Given her recent brain bleed with subsequent ventriculostomy this should be expected. Neurologically the patient shows no change and continues to complain of occasional headaches, this is being treated with acetaminophen which helps. Yesterday her neuro surgeon was contacted and he reported that there is been hardly any change on the imaging of her brain, so he did not recommend any changes in her treatment. She is scheduled for follow-up with him in a few weeks. Patient has not been very active since being hospitalized, I will put a consult to PT to get her up ambulating. - Review of Systems Generalized/Overall Review: Reports: No Symptoms Reported EENTM: Reports: No Symptoms Reported Respiratory: Reports: No Symptoms Reported Cardiac: Reports: No Symptoms Reported Abdominal: Reports: No Symptoms Reported Genitourinary Symptoms: Reports: No Symptoms Reported Musculoskeletal Complaints: Reports: No Symptoms Reported Neurological: Reports: Headache, Pre-existing Deficit Skin: Reports: No Symptoms Reported Endocrine: Reports: No Symptoms Reported - Vitals Vitals: Last Vital Signs Temp 36.9 C 03/12/20 07:34 Pulse 74 03/12/20 07:34 Resp 14 03/12/20 07:34 BP 176/74 H 03/12/20 07:34 Pulse Ox 96 03/12/20 07:34 - Abnormal Lab Findings Abnormal Lab Findings: Abnormal Lab Results 03/11/20 03/12/20 Range/Units 15:40 07:14 Potassium 3.3 L 3.0 L (3.4-4.6) mmol/L Est GFR (Non-Af Amer) 51 L 49 L (60-130) mL/min Random Glucose 121 H 115 H (70-110) mg/dL Total Bilirubin 1.4 H (0.0-1.1) mg/dL - Exam Constitutional: Present: Alert, Oriented x3, Cooperative, Well developed, Well nourished, No distress, Somnolent, Elderly, Obese ENT Exam: Present: normal ENT inspection, hearing grossly normal, TMs normal Neck: Present: non-tender, full range of motion, supple, normal inspection, trachea midline Breasts: Present: Exam deferred, Nontender Respiratory: Present: chest non-tender, lungs clear, normal breath sounds, no respiratory distress, no accessory muscle use Cardiovascular/Chest: Present: normal peripheral pulses, no chest tenderness, no edema, no gallop, no JVD, no murmur, no rub, irregularly irregular Abdomen: Present: Normal bowel sounds, soft, nontender, nondistended, no rebound tenderness, no hepatospenomegaly, no masses, obese /Rectal: Present: Exam deferred Extremity: Present: normal range of motion, non-tender, normal inspection, no pedal edema, no calf tenderness Skin Exam: Present: normal color, warm/dry, no cyanosis Lymphatic: Present: no adenopathy Neurologic: Present: alert, oriented x 3, motor weakness - Left-sided weakness Appearance: Present: appropriate appearance, appropriate insight, neat Eye contact: Present: cooperative, good eye contact, other - Slow but clear speech Thoughts: Present: normal thought pattern, no apparent hallucination Assessment/Plan Plan Narrative: We will put a consult for physical therapy to keep the patient active and up ambulating if she tolerates during hospitalization. Her hypokalemia persists despite multiple doses of IV and p.o. supplements, additional dose has been ordered. We will repeat labs in the morning for reevaluation. Patient's blood pressure is elevated at the moment but she has not been administered her morning meds yet, will administer them and monitor her blood pressure. She was also found to have a positive MRSA in the nares, therefore we will keep her under contact isolation and apply Bactroban twice a day. 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
[2020-03-12] MEDS ORDERED: hydrALAZINE HCL 10 MG TABLET PO ONE (15:08)
[2020-03-12] MEDS: ROSUVASTATIN CALCIUM 10 MG TABLET PO SCH (20:59)
[2020-03-13 07:03] LABS: Albumin * 3.5 gm/dl (3.4-5.0); BUN/Creatinine Ratio 16.5 (9.0-21.6); Bilirubin, Total 1.3 mg/dL (0.0-1.1); Ca. Corrected For Albumin 10.1 mg/dL (8.4-10.2); Carbon Dioxide 35.4 mmol/L (24-32.6); Potassium 3.4 mmol/L (3.4-4.6); Total Protein 6.8 gm/dL (6.2-8.2)
[2020-03-13] MEDS: INSULIN REGULAR, HUMAN 100 UNITS/ML VIAL SC SCH ×4 (07:49→20:55)
[2020-03-13] MEDS: ACETAMINOPHEN 325 MG TABLET PO PRN (09:01)
[2020-03-13] MEDS: CARVEDILOL 25 MG TABLET PO SCH ×2 (09:01→20:52)
[2020-03-13] MEDS: MUPIROCIN 22 APPL TUBE TP SCH ×2 (09:01→20:49)
[2020-03-13] MEDS: amLODIPine BESYLATE 10 MG TABLET PO SCH (09:02)
[2020-03-13] MEDS: FUROSEMIDE 40 MG TABLET PO SCH (09:02)
[2020-03-13] MEDS: LISINOPRIL 40 MG TABLET PO SCH (09:02)
[2020-03-13] MEDS: NYSTATIN 15 APPL TUBE TP SCH ×2 (09:03→20:56)
[2020-03-13] MEDS: GABAPENTIN 600 MG TABLET PO SCH ×3 (09:03→17:07)
[2020-03-13] MEDS: ROSUVASTATIN CALCIUM 10 MG TABLET PO SCH (20:52)
--- NOTE | 2020-03-13 23:47 | PN ---
Subjective - Date and Time Seen Date: 03/13/20 Time: 11:45 Subjective Narrative: Marybeth has no concerns. Denies fever, chills, nausea, or vomiting. Potassium is back to normal today. Objective - Vitals Vitals: Last Vital Signs Temp 36.5 C 03/13/20 21:33 Pulse 60 03/13/20 21:33 Resp 18 03/13/20 21:33 BP 150/62 H 03/13/20 21:33 Pulse Ox 92 L 03/13/20 21:33 - Abnormal Lab Findings Abnormal Lab Findings: Abnormal Lab Results 03/13/20 Range/Units 06:45 Carbon Dioxide 35.4 H (24-32.6) mmol/L Est GFR (Non-Af Amer) 44 L (60-130) mL/min Random Glucose 113 H (70-110) mg/dL Total Bilirubin 1.3 H (0.0-1.1) mg/dL - Exam Constitutional: Present: Alert, No distress Respiratory: Present: lungs clear, no respiratory distress Cardiovascular/Chest: Present: no edema, irregularly irregular Abdomen: Present: Normal bowel sounds, soft, nontender, nondistended Assessment/Plan Plan Narrative: No changes today. Potassium has normalized. Awaiting placement. - Problems/Diagnosis (1) Altered mental status Problem: Acute Qualifiers: Altered mental status type: somnolence Qualified Code(s): R40.0 - Somnolence (2) Hypokalemia Problem: Resolved (3) Intraventricular hemorrhage Problem: Acute
[2020-03-14] MEDS: INSULIN REGULAR, HUMAN 100 UNITS/ML VIAL SC SCH ×4 (07:31→21:02)
[2020-03-14] MEDS: NYSTATIN 15 APPL TUBE TP SCH ×2 (09:47→20:53)
[2020-03-14] MEDS: CARVEDILOL 25 MG TABLET PO SCH ×3 (09:48→21:48)
[2020-03-14] MEDS: amLODIPine BESYLATE 10 MG TABLET PO SCH (09:48)
[2020-03-14] MEDS: GABAPENTIN 600 MG TABLET PO SCH ×3 (09:48→17:26)
[2020-03-14] MEDS: FUROSEMIDE 40 MG TABLET PO SCH (09:48)
[2020-03-14] MEDS: LISINOPRIL 40 MG TABLET PO SCH (09:48)
[2020-03-14] MEDS: MUPIROCIN 22 APPL TUBE TP SCH ×2 (09:48→20:54)
--- NOTE | 2020-03-14 09:59 | PN ---
Subjective - Date and Time Seen Date: 03/14/20 Time: 09:30 Subjective Narrative: She reports feeling ok this morning. Denies new concerns. Objective - Review of Systems Generalized/Overall Review: Denies: Fever Respiratory: Denies: Shortness of Breath Cardiac: Denies: Edema Abdominal: Reports: No Symptoms Reported Genitourinary Symptoms: Reports: No Symptoms Reported Musculoskeletal Complaints: Reports: No Symptoms Reported - Vitals Vitals: Last Vital Signs Temp 36.6 C 03/14/20 06:00 Pulse 74 03/14/20 08:00 Resp 16 03/14/20 06:00 BP 171/84 H 03/14/20 06:00 Pulse Ox 93 03/14/20 06:00 - Exam Constitutional: Present: Alert, Cooperative, Elderly, Obese ENT Exam: Present: other - several ghassan of right frontal-parietal region, incision C/D/I Respiratory: Present: lungs clear, normal breath sounds Cardiovascular/Chest: Present: regular rate, rhythm Abdomen: Present: soft, nontender, obese Extremity: Absent: lower extremity edema Neurologic: Present: other - flat affect. Does not move her left hand when aske d, but will wiggle bilateral toes. Absent: facial droop Eye contact: Present: good eye contact, other - does not answer all questions. Some replies are delayed Assessment/Plan - Problems/Diagnosis (1) Intraventricular hemorrhage, nontraumatic Problem: Acute Narrative: Chart review shows she had recent brain surgery for hemorrhagic. [place] still in place. She was admitted with increased somnolence, which has resolved. She was to return to the [facility] on 03/11/20, but the facility declined taking her back that day. Today is a holiday, so she will not be able to return today. Appreciate case management assistance in getting her back to [facility], probably tomorrow. Continue physical therapy. She reports being able to ambulate to the bathroom, and denies difficulty swallowing. Verified with staff that she is swallowing without apparent difficulty. Will need to continue PT and OT at the [facility]. (2) Hypokalemia Problem: Resolved Narrative: Potassium was low on admission, and she received IV and po supplementation. Yesterday's value was 3.4. Repeat level pending. (3) Anticoagulated on Coumadin Problem: Chronic (4) Atrial fibrillation Problem: Acute Narrative: Continue carvedilol. She is not anticoagulated, currently, but she recently had a brain bleed and anticoagulation currently contraindicated. (5) HTN (hypertension) Problem: Acute Narrative: Her blood pressure seems to respond well to her home meds, but is elevated prior to their administration. continue 10 mg amlodipine and 40 mg lisinopril. These could be given 12 hours apart, for more consistent BP control. (6) Diabetes mellitus Problem: Suspected Narrative: She has had some elevated blood sugars since arrival, but home med list does not include diabetic medications. A1C pending to help clarify if she currently meets criteria for diabetes. She has been prescribed regular insulin per sliding scale, but her glucose has been less than 150, and hasn't received any insulin this admission.
[2020-03-14 10:12] LABS: Albumin * 3.6 gm/dl (3.4-5.0); Anion Gap 10.3 mmol/L (6.8-13.8); BUN/Creatinine Ratio 17.1 (9.0-21.6); Bilirubin, Total 1.3 mg/dL (0.0-1.1); Ca. Corrected For Albumin 9.8 mg/dL (8.4-10.2); Calcium * 9.8 mg/dL (7.9-10.9); Hemoglobin A1C 5.9 % (3.80-5.60); Potassium 3.3 mmol/L (3.4-4.6); Total Protein 6.9 gm/dL (6.2-8.2)
[2020-03-14] MEDS: ROSUVASTATIN CALCIUM 10 MG TABLET PO SCH ×2 (20:54→21:48)
[2020-03-15] MEDS: INSULIN REGULAR, HUMAN 100 UNITS/ML VIAL SC SCH ×4 (06:52→21:11)
[2020-03-15] MEDS: MUPIROCIN 22 APPL TUBE TP SCH ×2 (08:09→21:05)
[2020-03-15] MEDS: amLODIPine BESYLATE 10 MG TABLET PO SCH (08:09)
[2020-03-15] MEDS: NYSTATIN 15 APPL TUBE TP SCH ×2 (08:10→21:06)
[2020-03-15] MEDS: LISINOPRIL 40 MG TABLET PO SCH (08:10)
[2020-03-15] MEDS: FUROSEMIDE 40 MG TABLET PO SCH (08:10)
[2020-03-15] MEDS: GABAPENTIN 600 MG TABLET PO SCH ×3 (08:10→16:55)
[2020-03-15] MEDS: CARVEDILOL 25 MG TABLET PO SCH ×2 (08:10→21:05)
[2020-03-15] MEDS ORDERED: POTASSIUM CHLORIDE 20 MEQ TABLET.SA PO ONE (08:54)
--- NOTE | 2020-03-15 09:05 | PN ---
Subjective - Date and Time Seen Date: 03/15/20 Time: 08:59 Subjective Narrative: My headaches are better I feel better. Objective Objective Narrative: 74-year-old female admitted for altered mental status and acute jassi rologic deficit was evaluated at bedside was found to be afebrile and in no acute distress. Patient reports improvement in her headaches this morning and says she feels better. She appears alert and awake and is oriented x3, she only shows mild forgetfulness concerning her physical therapy sessions. Aside from that she is pleasant and conversant and does not show any new signs or symptoms. She does however appear mildly somnolent which is expected after the neurological event that caused all this. We will add occupational therapy and speech therapy per the recommendation of the physical therapist. It is my recommendation that the patient continues this once she is discharged to a care facility. Currently caser up are working on placement in a skilled nursing where the patient will continue her rehabilitation. Her hypokalemia has improved, yesterday she only had a mildly decreased potassium level so additional p.o. supplement was ordered. - Review of Systems Generalized/Overall Review: Reports: No Symptoms Reported EENTM: Reports: No Symptoms Reported Respiratory: Reports: No Symptoms Reported Cardiac: Reports: No Symptoms Reported Abdominal: Reports: No Symptoms Reported Genitourinary Symptoms: Reports: No Symptoms Reported Musculoskeletal Complaints: Reports: No Symptoms Reported Neurological: Reports: Pre-existing Deficit Skin: Reports: No Symptoms Reported Endocrine: Reports: No Symptoms Reported - Vitals Vitals: Last Vital Signs Temp 36.9 C 03/15/20 06:39 Pulse 57 L 03/15/20 08:10 Resp 16 03/15/20 06:39 BP 138/62 03/15/20 08:10 Pulse Ox 92 L 03/15/20 06:39 - Abnormal Lab Findings Abnormal Lab Findings: Abnormal Lab Results 03/14/20 03/14/20 Range/Units 09:54 09:54 Potassium 3.3 L (3.4-4.6) mmol/L Est GFR (Non-Af Amer) 43 L (60-130) mL/min Random Glucose 142 H (70-110) mg/dL Hemoglobin A1c 5.9 H (3.80-5.60) % Total Bilirubin 1.3 H (0.0-1.1) mg/dL - Exam Constitutional: Present: Alert, Oriented x3, Cooperative, Well developed, Well nourished, No distress, Elderly ENT Exam: Present: normal ENT inspection, hearing grossly normal, pharynx normal, TMs normal Neck: Present: non-tender, full range of motion, supple, normal inspection, trachea midline Breasts: Present: Exam deferred, Nontender Respiratory: Present: chest non-tender, lungs clear, normal breath sounds, no respiratory distress, no accessory muscle use Cardiovascular/Chest: Present: normal peripheral pulses, regular rate, rhythm, no chest tenderness, no edema, no gallop, no JVD, no murmur, no rub Abdomen: Present: Normal bowel sounds, soft, nontender, nondistended, no rebound tenderness, no hepatospenomegaly, no masses /Rectal: Present: Exam deferred Extremity: Present: normal range of motion, non-tender, normal inspection, no pedal edema, no calf tenderness, normal capillary refill, pelvis stable Skin Exam: Present: normal color, warm/dry, no cyanosis Lymphatic: Present: no adenopathy Neurologic: Present: alert, normal mood/affect, oriented x 3, motor weakness - Left-sided weakness Appearance: Present: appropriate appearance, appropriate insight, neat, impaired recent memory Eye contact: Present: cooperative, good eye contact, normal speech Thoughts: Present: normal thought pattern, no apparent hallucination Assessment/Plan Plan Narrative: We will continue working on placement in a skilled nursing for the patient, in the meantime we will continue PT, OT, and speech therapy. 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
[2020-03-15] MEDS: ROSUVASTATIN CALCIUM 10 MG TABLET PO SCH (21:06)
[2020-03-16] MEDS: INSULIN REGULAR, HUMAN 100 UNITS/ML VIAL SC SCH ×2 (07:45→12:17)
[2020-03-16] MEDS: NYSTATIN 15 APPL TUBE TP SCH (08:06)
[2020-03-16] MEDS: MUPIROCIN 22 APPL TUBE TP SCH (08:06)
[2020-03-16] MEDS: LISINOPRIL 40 MG TABLET PO SCH (08:07)
[2020-03-16] MEDS: GABAPENTIN 600 MG TABLET PO SCH ×2 (08:07→13:27)
[2020-03-16] MEDS: CARVEDILOL 25 MG TABLET PO SCH (08:07)
[2020-03-16] MEDS: amLODIPine BESYLATE 10 MG TABLET PO SCH (08:07)
[2020-03-16] MEDS: FUROSEMIDE 40 MG TABLET PO SCH (08:08)
--- NOTE | 2020-03-16 11:57 | DS ---
(1) Intraventricular hemorrhage, nontraumatic Problem: Acute (2) Troponin level elevated Problem: Acute (3) Atrial fibrillation Problem: Chronic (4) Intraventricular hemorrhage Problem: Acute (5) Altered mental status Problem: Acute Qualifiers: Altered mental status type: somnolence Qualified Code(s): R40.0 - Somnolence (6) Hypokalemia Problem: Resolved (7) Diabetes 1.5, managed as type 2 Problem: Chronic (8) Recent cerebral hemorrhage Problem: Acute (9) HTN (hypertension) Problem: Acute (10) Nose colonized with MRSA Problem: Acute (11) Frequent headaches Problem: Acute Date of Discharge:: 03/16/20 Hospital Course: 74-year-old female was admitted to [facility] for recurrence altered mental status and recurrent headaches that developed while at [facility]. Patient had been seen in the ER for similar symptoms several days before this hospitalization only to be discharged after work-up was negative for acute findings. 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 Since then she has waxing and waning of her cognitive function and alertness which her neurosurgeon says is somewhat expected. Since being admitted at [facility] the patient's only complaint is recurrent headaches which is most likely related to the recent neurological event, this was managed with acetaminophen. She also presented left-sided weakness which is a sequela of her recent CVA. The patient showed occasional confusion about where she lived however at bedside evaluation she was oriented x3. Throughout the hospitalization the patient was noticed to be somnolent and hypoactive but fully awake and able to follow commands. Physical therapy, Occupational Therapy, and speech therapy were ordered for evaluation and management of her deficits and to continue her rehab. She was also treated for hypokalemia with IV and oral supplements so she will need follow-up labs to be done in several days. Patient's blood pressure was elevated in the morning times but once administered her routine medications and was controlled. We will discharge patient to the rehab facility at [facility] to continue her rehabilitation, placement has been acquired. Will resume all of her routine medications. Procedures Performed: none Results and Findings: Lab Pending Results 03/10/20 13:10: WBC 14.5 H, RBC 4.63, Hgb 13.3, Hct 40.1, MCV 86.6, MCH 28.7, MCHC 33.2, RDW 13.1, Plt Count 228, MPV 9.9, Immature Gran % (Auto) 0.60 H, Immature Gran # (Auto) 0.08 H, Neutrophils % 86.0 H, Lymphocytes % 7.8 L, Monocytes % 4.7, Eosinophils % 0.6, Basophils % 0.3, Nucleated RBC % 0.0, Neutrophils # 12.5 H, Lymphocytes # 1.14 L, Monocytes # 0.7, Eosinophils # 0.1, Absolute Basophils 0.1 03/10/20 13:10: Sodium 139, Plasma Sodium 139, Potassium 2.9 L, Chloride 98, Carbon Dioxide 29.4, Anion Gap 14.5 H, BUN 23, Creatinine 1.40 D, Est GFR (Non- Af Amer) 39 L D, BUN/Creatinine Ratio 16.4, Random Glucose 128 H, Calcium 9.5, Calcium Adj for Albumin 9.5, Total Bilirubin 1.3 H, AST 21, ALT 27, Alkaline Phosphatase 95, Troponin I 0.182 H*, C-Reactive Prot, Quant 0.8, Total Protein 7.1, Albumin 3.6 03/10/20 14:05: Urine Color Yellow, Urine Appearance Clear, Urine pH 6.0, Ur Specific Bryant 1.015, Urine Protein Negative, Urine Glucose (UA) Negative, Urine Ketones Negative, Urine Blood Negative, Urine Nitrate Negative, Urine Bilirubin Negative, Urine Urobilinogen Normal, Ur Leukocyte Esterase Negative, Urine RBC None seen, Urine WBC Trace H, Ur Epithelial Cells None seen, Urine Bacteria 1+ H, Urine Culture Comments No culture indicated 03/10/20 16:05: Troponin I 0.171 H* 03/10/20 18:27: SARS-CoV-2 (PCR) Not detected 03/11/20 06:41: WBC 10.3 D, RBC 4.42, Hgb 12.9, Hct 38.2, MCV 86.4, MCH 29.2, MCHC 33.8, RDW 13.0, Plt Count 215, MPV 10.2, Immature Gran % (Auto) 0.40, Immature Gran # (Auto) 0.04 H, Neutrophils % 74.9, Lymphocytes % 15.8 L, Monocytes % 7.5, Eosinophils % 0.9, Basophils % 0.5, Nucleated RBC % 0.0, Neutrophils # 7.7 H, Lymphocytes # 1.62, Monocytes # 0.8, Eosinophils # 0.1, Absolute Basophils 0.1 03/11/20 06:41: Sodium 141, Plasma Sodium 141, Potassium 2.9 L, Chloride 101, Carbon Dioxide 32.3, Anion Gap 10.6, BUN 25 H, Creatinine 1.16, Est GFR (Non-Af Amer) 48 L D, BUN/Creatinine Ratio 21.6, Random Glucose 107, Calcium 9.8, Calcium Adj for Albumin 10.0, Total Bilirubin 1.1, AST 19, ALT 23, Alkaline Phosphatase 92, Total Protein 6.7, Albumin 3.4 03/11/20 15:40: Sodium 138, Plasma Sodium 138, Potassium 3.3 L, Chloride 99, Carbon Dioxide 29.5, Anion Gap 12.8, BUN 23, Creatinine 1.10, Est GFR (Non-Af Amer) 51 L, BUN/Creatinine Ratio 20.9, Random Glucose 121 H, Calcium 9.9 03/12/20 07:14: Sodium 138, Plasma Sodium 138, Potassium 3.0 L, Chloride 100, Carbon Dioxide 32.4, Anion Gap 8.6, BUN 20, Creatinine 1.14, Est GFR (Non-Af Amer) 49 L, BUN/Creatinine Ratio 17.5, Random Glucose 115 H, Calcium 9.8, Calcium Adj for Albumin 9.9, Total Bilirubin 1.4 H, AST 21, ALT 25, Alkaline Phosphatase 93, Total Protein 6.9, Albumin 3.5 03/13/20 06:45: Sodium 140, Plasma Sodium 140, Potassium 3.4, Chloride 100, Carbon Dioxide 35.4 H, Anion Gap 8.0, BUN 21, Creatinine 1.27, Est GFR (Non-Af Amer) 44 L, BUN/Creatinine Ratio 16.5, Random Glucose 113 H, Calcium 10.0, Calcium Adj for Albumin 10.1, Total Bilirubin 1.3 H, AST 21, ALT 25, Alkaline Phosphatase 95, Total Protein 6.8, Albumin 3.5 03/14/20 09:54: Sodium 138, Plasma Sodium 139, Potassium 3.3 L, Chloride 100, Carbon Dioxide 31.0, Anion Gap 10.3, BUN 22, Creatinine 1.29, Est GFR (Non-Af Amer) 43 L, BUN/Creatinine Ratio 17.1, Random Glucose 142 H, Calcium 9.8, Calcium Adj for Albumin 9.8, Total Bilirubin 1.3 H, AST 25, ALT 27, Alkaline Phosphatase 92, Total Protein 6.9, Albumin 3.6 03/14/20 09:54: Mean Blood Glucose 123, Hemoglobin A1c 5.9 H Discharge Location: [facility] Disposition: Inpatient Rehab Facility Condition: Stable Face to Face Encounter completed per [facility] Guidelines: No Discharge Activity: Activity as tolerated Discharge Diet: Consistent carbs Additional Patient Instructions (free text): [facility] Inpatient rehab. PT/OT/speech to evaluate and treat. Complete Home Medications List: Complete Home Medication List: Aspirin 325 mg PO DAILY 02/21/20 Atorvastatin Calcium 10 mg PO HS 02/21/20 Furosemide [Lasix] 40 mg PO DAILY 02/21/20 Gabapentin 600 mg PO TID 02/21/20 Amlodipine Besylate 10 mg PO DAILY 03/07/20 Carvedilol [Coreg] 25 mg PO BID 03/07/20 Clonidine HCl [Catapres] 0.2 mg PO Q8H 03/07/20 Lisinopril [Zestril] 40 mg PO DAILY 03/07/20 Forms: Patient Portal Registration
[2020-03-16 13:46] VITALS: BP 127/64
== END 2020-03-16 13:43 | disposition short-term general hospital (02) | DRG 57 ==
LOC: ER 13:01 → MS 18:19
PROVIDERS: ADMIT Family Medicine; ATTEND Family Medicine
DX: T81.9XXA Unspecified complication of procedure, initial encounter; Z22.322 Carrier or suspected carrier of Methicillin resistant Staphylococcus aureus; E13.9 Other specified diabetes mellitus without complications; I69.118 Other symptoms and signs involving cognitive functions following nontraumatic intracerebral hemorrhage; Z11.59 Encounter for screening for other viral diseases; Z79.01 Long term (current) use of anticoagulants; R51 Headache; R79.89 Other specified abnormal findings of blood chemistry; R26.89 Other abnormalities of gait and mobility; I69.154 Hemiplegia and hemiparesis following nontraumatic intracerebral hemorrhage affecting left non-dominant side; I48.91 Unspecified atrial fibrillation; E87.6 Hypokalemia; I10 Essential (primary) hypertension